=== PATIENT | female | born 1950 | race American Indian/Alaskan Native ===

== ENCOUNTER 2017-12-24 08:35 | Outpatient (CLI) | payer MEDICARE ==
[2017-12-24 08:59] LABS: Basophils # (Auto) 0.1 K/mm3 (0.0-0.1); Basophils % (Auto) 0.7 % (0.0-1.8); Eosinophils # (Auto) 0.1 K/mm3 (0.0-0.4); Eosinophils % (Auto) 1.7 % (0.0-4.3); Hematocrit 43.9 % (30.3-42.9); Hemoglobin 14.7 gm/dl (10.1-14.3); Lymphocytes # (Auto) 2.9 K/mm3 (1.2-5.4); Lymphocytes % (Auto) 35.1 % (13.4-35.0); Mean Corpuscular HGB Conc 34 % (30-34); Mean Corpuscular Hemoglobin 30 pg (28-32); Mean Corpuscular Volume 89 fl (79-97); Monocytes # (Auto) 0.5 K/mm3 (0.0-0.8); Monocytes % (Auto) 6.5 % (0.0-7.3); Platelet Count 417 K/mm3 (140-440); Red Blood Count 4.94 M/mm3 (3.65-5.03); Red Cell Distribution Width 13.6 % (13.2-15.2)
[2017-12-24 09:07] LABS: BUN/Creatinine Ratio 15; Blood Urea Nitrogen 9 mg/dL (7-17); Calcium 9.3 mg/dL (8.4-10.2); Hemolysis Index 1
[2017-12-24] MEDS ORDERED: NACL ONE (09:11)
[2017-12-24 09:12] LABS: INR 0.85 (0.87-1.13)
--- NOTE | 2017-12-24 18:23 | Cat Scan Report ---
FINAL REPORT PROCEDURE: CT ANGIO ABD/FEMORAL ABD AORTA TECHNIQUE: Computerized axial tomographic angiography of the chest, abdomen, pelvis and aortoiliac system with bilateral lower extremity runoff was performed after the IV injection of nonionic iodinated contrast including image processing.The image data was postprocessed using 2-dimensional multiplanar reformatted (MPR) and 3-dimensional (MIP and/or volume rendered) techniques. HISTORY: ATHEROSCLEROSIS COMPARISON: No prior studies are available for comparison. FINDINGS: Complex mass in the left mid anterior kidney measures 3.5 x 2.9 centimeters is indeterminate. Although not hypervascular is concerning for complex cyst or for possible cystic renal cell malignancy which is the diagnosis of exclusion. Followup and further workup is advised. Fibroid uterus also evident with early enhancement features There is mild diffuse atherosclerosis aorta and iliac arteries. Moderate stenosis celiac axis mild stenosis SMA. Moderate moderate narrowing of the bilateral renal arteries. There is no evidence of aortic aneurysm. There is atherosclerosis with mural thrombus distal abdominal aorta. There is atherosclerosis extending into the common iliac arteries bilaterally. Right: There is severe stenosis of the right common iliac artery and internal iliac artery. Moderate atherosclerotic disease of the proximal right common femoral artery with 50 percent narrowing and with occlusion of the proximal right SFA with reconstitution of the proximal to mid branch with reocclusion and numerous collaterals reconstituting above the adductor canal opacified a diseased popliteal artery with trifurcation branch vessels seen. The anterior tibial artery is occluded proximally. Patchy areas of disease in the proximal posterior tibial artery with flow present and subsequent attenuation distally and occlusion. There is essentially one-vessel runoff below the knee on the right namely the peroneal artery Left: Atherosclerotic disease of the left common iliac artery with a dissection with a focal dissection proximal common iliac artery suspected. Suspect a 2nd dissection seen at the distal left common iliac artery with chronic mural thrombus and with moderate internal iliac artery stenosis. There is mild atherosclerotic disease of the left common femoral artery with mild stenosis of the proximal SFA. Tandem areas of [id number] disease in the left SFA throughout with patency to the popliteal artery and with three-vessel runoff initially namely the peroneal artery. The anterior tibial artery remains occluded proximally with attenuation of the posterior tibial artery. There is some reconstitution of the distal anterior tibial artery dorsalis pedis. Essentially one-vessel runoff below the knee on the left name the peroneal. IMPRESSION: Heavily calcified arterial atherosclerosis with high-grade narrowing of the right common iliac artery and with occlusion of the right SFA with reconstitution of the mid to distal right SFA which appears diseased and opacifies the right popliteal artery with essentially one-vessel runoff straight line flow below the knee on the right. 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 There is patency with tandem areas of mild to moderate diffuse atherosclerosis left external iliac common femoral femoral arteries popliteal artery with trifurcation disease and with essentially one-vessel runoff straight line flow below the knee on the left Complex mass in the left kidney. Rule-out renal cell carcinoma. Followup is advised.
== END 2017-12-24 08:36 | disposition home or self-care (01) ==
LOC: CT 08:35
PROVIDERS: ATTEND Radiology Vascular & Interventional Radiology
DX: I70.213 Atherosclerosis of native arteries of extremities with intermittent claudication, bilateral legs (principal); I74.09 Other arterial embolism and thrombosis of abdominal aorta; I70.8 Atherosclerosis of other arteries; D25.9 Leiomyoma of uterus, unspecified; N28.89 Other specified disorders of kidney and ureter
CPT/HCPCS: 36415; 75635; 80048; 85025; 85610; 85730; Q9967

== ENCOUNTER 2018-02-16 07:10 | Outpatient (CLI) | payer MEDICARE ==
[2018-02-16 07:47] LABS: Blood Urea Nitrogen 13 mg/dL (7-17)
--- NOTE | 2018-02-16 15:27 | Magnetic Resonance Report ---
MRI ABDOMEN WITH AND WITHOUT CONTRAST INDICATION: Renal mass. COMPARISON: 12/24/2017 CTA images. FINDINGS: Multiplanar and multisequence MRI of the abdomen performed before and after 16 ml MultiHance intravenously. Approximately 2.5 cm partly exophytic left interpolar solid renal cortical mass anteriorly again noted with possible tiny intrinsic calcifications better visualized on prior CT with approximately 74HU attenuation. It is relatively isointense to the kidney on T1 and mildly hypointense on T2-weighted images. Postcontrast images demonstrate no definite significant enhancement, to the extent assessed. No other focal suspicious renal lesions. No hydronephrosis. Liver, spleen, gallbladder, pancreas, adrenals, nonaneurysmal abdominal aorta with few atherosclerotic changes and IVC appear within normal limits. No ascites or size significant adenopathy. Normal bowel, marrow and muscle signal. Clear visualized lung bases. CONCLUSION: Approximately 2.5 cm left renal interpolar partly exophytic cortical mass anteriorly. It may represent a complex/hemorrhagic cyst, though its imaging appearance remains nonspecific. A low grade carcinoma remains difficult to entirely exclude on this exam alone. Direct comparison with more remote relevant imaging, if available, would be very helpful to reassure stability and avoid further workup. Thank you for the opportunity to participate in this patient's care.
== END 2018-02-16 07:11 | disposition home or self-care (01) ==
LOC: MRI 07:10
PROVIDERS: ATTEND Radiology Vascular & Interventional Radiology
DX: N28.89 Other specified disorders of kidney and ureter (principal); I70.0 Atherosclerosis of aorta; F17.200 Nicotine dependence, unspecified, uncomplicated
CPT/HCPCS: 36415; 74183; 82565; 84520; A9577

== ENCOUNTER 2018-05-18 09:50 | Outpatient (CLI) | payer MEDICARE ==
[2018-05-18 11:17] LABS: Blood Urea Nitrogen 14 mg/dL (7-17)
--- NOTE | 2018-05-18 13:03 | Cat Scan Report ---
CT ABDOMEN WITH AND WITHOUT CONTRAST INDICATION: Renal mass followup. COMPARISON: 12/24/2017 CT. FINDINGS: Abdomen CT performed before and after IV contrast. LUNG BASES: Nonspecific distal esophageal wall prominence/thickening, not excluded for gastroesophageal reflux and/or hiatal hernia, amongst others. ABDOMEN: Precontrast images again demonstrate a hyperdense left renal cortical mass anteriorly with few tiny intrinsic calcific densities. A nonobstructing 1-2 mm left interpolar calculus also seen, axial image 57, series 2. Post contrast images again demonstrate a relatively hypodense appearance of this renal mass relative to surrounding kidney parenchyma. It currently measures 3 x 2.5 cm in maximum orthogonal dimensions, axial series 5, image 122 with corresponding similar previous measurements 3.5 x 2.7 cm as on axial series 2, image 120. Its attenuation currently is 58 HU pre-contrast, 96 HU on early portal venous phase and 108 HU on the delayed phase. Liver, spleen, gallbladder, pancreas, adrenals and IVC within normal limits. Nonaneurysmal abdominal aorta with few atherosclerotic calcifications. Nonopacified GI tract evaluation limited, though grossly nonobstructive. Multiple descending colon diverticula incidentally noted. Multilevel spinal degenerative changes, greatest lower thoracic with spurring, sclerosis and possible disc degeneration. CONCLUSION: 1. No interval enlargement in complex left renal cortical mass; rather measuring slightly smaller, as described, suggesting a benign etiology as a hemorrhagic cyst or an indolent/non aggressive lesion. Mild enhancement however noted without washout, a pattern not supporting aggressive neoplasms. Continued surveillance in about 6 months suggested if more remote relevant imaging not available. 2. Few other incidental findings, as above. Thank you for the opportunity to participate in this patient's care.
== END 2018-05-18 09:51 | disposition home or self-care (01) ==
LOC: CT 09:50
DX: N28.89 Other specified disorders of kidney and ureter (principal); I70.0 Atherosclerosis of aorta; M47.894 Other spondylosis, thoracic region; G95.89 Other specified diseases of spinal cord; F17.210 Nicotine dependence, cigarettes, uncomplicated; I10 Essential (primary) hypertension
CPT/HCPCS: 36415; 74170; 82565; 84520; Q9967